=== PATIENT | female | born 1990 | race Caucasian/White ===

== ENCOUNTER 2019-01-15 17:42 | Inpatient (IN) | payer OTHER ==
[~2019-01-15 17:42] MED LIST: Dexamethasone 20 MG/5 ML VIAL ONE; Ketorolac Tromethamine 30 MG/ML VIAL ONE; Ondansetron PF 4 MG/2 ML Vial ONE; diphenhydrAMINE 50 MG/ML VIAL ONE
[2019-01-15 18:37] VITALS: BMI 38.5
[2019-01-15] MEDS ORDERED: Ondansetron PF 4 MG/2 ML Vial IVP PRN ×4 (20:36→22:37)
[2019-01-15] MEDS ORDERED: Promethazine HCl 25 MG/ML VIAL IM PRN ×4 (20:36→22:37)
[2019-01-15] MEDS ORDERED: Lactated Ringer's 1,000 ML IV SCH ×2 (20:45→21:00)
[2019-01-15] MEDS ORDERED: CEFAZOLIN 2 GM in Premix Bag 1 BAG IVPB SCH ×2 (20:45→21:00)
[2019-01-15] MEDS ORDERED: Bicitra 30 ML UDCUP PO SCH ×2 (20:45→21:00)
--- NOTE | 2019-01-15 20:49 | ULT ---
ULTRASOUND BIOPHYSICAL PROFILE: 01/15/19 HISTORY: Abnormal biophysical profile obtained in physician's office which was 4 out of 8 with amniotic fluid index of 5 reported from outside exam. COMPARISON: None available. FINDINGS: There is evidence of a single intrauterine gestation. Cardiac Doppler demonstrates heart tones with a heart rate of 135 beats per minute. The placenta is located anteriorly without evidence of placenta previa. Subjectively, there is decreased amniotic fluid with diminished amniotic fluid in dex of 2.6 cm obtained on this exam. A score of 2 was obtained for movement and amniotic fluid volume. A score of 0 was obtained fo r tone and breathing movements. IMPRESSION: 1. Decreased biophysical profile score of 4 out of 8. 2. Oligohydramnios with amniotic fluid index measuring 2.6 cm. 3. Single intrauterine gestation in cephalic presentation with heart tones documented. 4. Above findings discussed with Adelaida labor and deliver nurse on 01/15/19 at 2039 hours. POS: [facility]
[2019-01-15 20:51] LABS: Hemoglobin 13.3 g/dL (12.0-16.0); Mean Corpuscular HGB CONC 35.3 g/dL (32.0-36.0); Mean Corpuscular Hemoglobin 33.7 pg (27.0-31.0); Mean Corpuscular Volume 95.4 fL (78.0-98.0); Mean Platelet Volume 9.1 fL (7.4-10.4); Platelet Count 207 thou/uL (130-400); RBC Distribution Width 13.5 % (11.5-14.5); Red Blood Cell (RBC) Count 3.96 mill/uL (4.20-5.40); White Blood Cell (WBC) Count 8.5 thou/uL (4.8-10.8)
--- NOTE | 2019-01-15 20:59 | PDOC.LDHP ---
Labor and Delivery H&P Chief complaint: decreased movement HPI: 28 Y/O at 37 and 6/7 weeks with hx of demise due to extreme prematurity, cervial cerclage and term that followed but with 4th degree laceration of the perineum. Patient has opted for medically indicated primary to avoid repeat anal sphincter injury. Today, she presents to clinic c/o almost 24 hours of minimal movement. 11/06 BPP. Patient sent to [facility] for further evaluation and likely soon. Current gestational age (weeks): 37 Grav: 3 Para: 1 Current complications: other (cervical incompetance) Abnormal US findings: Yes (11/06 BPP today) Current medications: pre-javier vitamins Previous surgical history: none (Repair of 4th degree anal injury) Allergies/Adverse Reactions: Allergies Allergy/AdvReac Type Severity Reaction Status Date / Time acetaminophen [From Vicodin] Allergy Verified 03/22/13 18:54 codeine Allergy Verified 03/22/13 18:54 hydrocodone bitartrate Allergy Verified 03/22/13 18:54 [From Vicodin] Social history: none - Physical Exam Vital signs reviewed and normal: yes General: NAD Heart: RRR Lungs: CTAB Abdomen: NTTP Extremeties: no edema FHT: category 1 - Assessment L&D Assessment: scheduled primary section - Plan Plan: to OR for section
[2019-01-15] MEDS ORDERED: MORPHINE 5 MG/10 ML PF VIAL ONE (21:31)
[2019-01-15] MEDS ORDERED: Oxytocin 10 UNITS/ML VIAL ONE ×3 (21:31→22:32)
[2019-01-15 21:41] LABS: Syphilis Antibody Nonreactive (Nonreactive); Syphilis Antibody Index 0.03 S/CO (<1.00 Non-Reactive)
[2019-01-15] MEDS ORDERED: diphenhydrAMINE 50 MG/ML VIAL IVP PRN ×2 (22:05→22:37)
[2019-01-15] MEDS ORDERED: Ondansetron HCl/PF 4 MG/2 ML Vial IVP PRN ×2 (22:05→22:37)
[2019-01-15] MEDS ORDERED: HYDROmorphone 2 MG/ML VIAL SLOW IVP PRN ×2 (22:05→22:37)
[2019-01-15] MEDS ORDERED: L&D-Morphine 4 MG/ML VIAL SLOW IVP PRN ×2 (22:05→22:37)
[2019-01-15] MEDS ORDERED: Promethazine HCl 25 MG SUPP PR PRN ×2 (22:05→22:37)
[2019-01-15] MEDS ORDERED: Naloxone HCl 0.4 mg/ml Vial IVP PRN ×3 (22:05→22:37)
[2019-01-15] MEDS ORDERED: Meperidine HCl/PF 25 MG/ML VIAL SLOW IVP PRN ×2 (22:05→22:37)
[2019-01-15] MEDS ORDERED: Ketorolac Tromethamine 30 MG/ML VIAL IVP PRN ×2 (22:05→22:37)
[2019-01-15] MEDS ORDERED: Naloxone HCl 0.4 mg/ml Vial IV PRN ×2 (22:05→22:37)
[2019-01-15] MEDS ORDERED: Ondansetron PF 4 MG/2 ML Vial ONE (22:14)
[2019-01-15] MEDS ORDERED: Ketorolac Tromethamine 30 MG/ML VIAL IVP SCH (22:15)
[2019-01-15] MEDS ORDERED: Communication Order-Pharmacy FS SCH ×2 (22:15→22:45)
[2019-01-15] MEDS ORDERED: Ketorolac Tromethamine 30 MG/ML VIAL ONE (22:26)
[2019-01-15] MEDS ORDERED: Dexamethasone 4 mg/ml Vial ONE (22:26)
[2019-01-15] MEDS ORDERED: diphenhydrAMINE 50 MG/ML VIAL ONE (22:58)
[2019-01-15 23:01] LABS: HBSAg Index 0.31 S/CO (0-0.99); Hep B Surf Ag Non-Reactive S/CO (NonReactive)
[2019-01-16] MEDS ORDERED: Meperidine HCl/PF 25 MG/ML VIAL ONE (00:27)
[2019-01-16] MEDS ORDERED: Naloxone HCl 0.4 mg/ml Vial ONE (00:44)
[2019-01-16] MEDS: Naloxone HCl 0.4 mg/ml Vial IVP PRN ×2 (00:46→05:51)
[2019-01-16] MEDS ORDERED: Lanolin Ointment 7 GM TUBE TOP PRN (01:10)
[2019-01-16] MEDS ORDERED: Simethicone Chewable 80 MG TAB PO PRN (01:10)
[2019-01-16] MEDS ORDERED: Bisacodyl 10 MG SUPP PR PRN (01:10)
[2019-01-16] MEDS ORDERED: Ondansetron PF 4 MG/2 ML Vial IVP PRN (01:10)
[2019-01-16] MEDS ORDERED: Promethazine HCl 25 MG/ML VIAL IM PRN (01:10)
[2019-01-16] MEDS ORDERED: NS / Oxytocin 40 units/1000ml 1,000 ML IV SCH (01:10)
[2019-01-16] MEDS ORDERED: Lactated Ringer's 1,000 ML IV SCH (01:10)
[2019-01-16] MEDS ORDERED: Methylergonovine 0.2 MG/ML VIAL IM PRN (01:10)
[2019-01-16] MEDS ORDERED: Zolpidem Tartrate 5 MG TAB PO PRN (01:10)
[2019-01-16] MEDS ORDERED: Misoprostol 200 MCG TAB PR PRN (01:10)
[2019-01-16 06:03] LABS: Hemoglobin 12.5 g/dL (12.0-16.0); Mean Corpuscular HGB CONC 34.7 g/dL (32.0-36.0); Mean Corpuscular Hemoglobin 33.3 pg (27.0-31.0); Mean Corpuscular Volume 96.1 fL (78.0-98.0); Mean Platelet Volume 9.3 fL (7.4-10.4); Platelet Count 189 thou/uL (130-400); RBC Distribution Width 13.4 % (11.5-14.5); Red Blood Cell (RBC) Count 3.76 mill/uL (4.20-5.40); White Blood Cell (WBC) Count 14.7 thou/uL (4.8-10.8)
[2019-01-16] MEDS: Prenatal Vitamin 1 TAB PO SCH (08:07)
[2019-01-16] MEDS: Docusate Calcium (SURFAK) 240 MG CAP PO SCH ×2 (08:14→21:25)
[2019-01-16] MEDS: diphenhydrAMINE 25 MG CAP PO PRN ×3 (08:20→21:30)
[2019-01-16] MEDS ORDERED: Measles/Mumps/Rubella 10 MCG/0.5 ML VIAL SC ONE (09:00)
[2019-01-16] MEDS ORDERED: Adacel (T-DAP) 0.5 ML SYRINGE IM ONE (09:00)
[2019-01-16] MEDS ORDERED: Varicella virus, LIVE 0.5 ML VIAL SC ONE (09:00)
--- NOTE | 2019-01-16 17:44 | PDOC.PP ---
Post Progress Note Post Day #: 1 PO intake tolerated: yes Flatus: yes Ambulation: yes Vital Signs (12 hours) Temp Pulse Resp BP Pulse Ox 01/16/19 16:15 97.9 F 94 20 125/84 01/16/19 11:08 98.3 F 84 20 121/66 01/16/19 08:17 98.1 F 81 20 129/72 96 Weight Weight 246 lb - Physical Examination General: NAD Cardiovascular: no m/r/g, RRR Respiratory: clear to auscultation bilaterally, non-labored breathing Abdominal: + bowel sounds, lochia, no distention Extremities: negative homans (B) Skin: CS incision dry & intact, no rash Neurological: no gross focal deficits Psychiatric: A&Ox3, normal affect (Continue post op care. Doing very well today. CMP in the morning to review CR/BUN after some decreased urine output earlier today.) Result Diagrams: 01/16/19 05:32 Additional Labs: Post Labs Blood Type B POSITIVE 01/16/19 00:06 Hep Bs Antigen Non-Reactive S/CO (NonReactive) 01/15/19 20:39
[2019-01-16] MEDS: traMADol HCl 50 MG TAB PO PRN ×2 (18:36→22:56)
[2019-01-16] MEDS: Ibuprofen 800 MG TAB PO SCH (21:25)
[2019-01-16] MEDS ORDERED: Sodium Chloride 0.9% 10 ML ONE (22:59)
[2019-01-17] MEDS: Ibuprofen 800 MG TAB PO SCH ×2 (05:53→14:09)
[2019-01-17] MEDS ORDERED: Ibuprofen 800 MG TAB PO SCH (06:00)
[2019-01-17 06:12] LABS: ALT (SGPT) 27 U/L (8-55); AST (SGOT) 26 U/L (5-34); Albumin 3.1 g/dL (3.5-5.0); Alkaline Phosphatase 67 U/L (40-150); Anion Gap 11 mmol/L (10-20); BUN (Urea Nitrogen) 8 mg/dL (7.0-18.7); Calc. Creatinine Clearance 231 mL/min (70-130); Carbon Dioxide 27 mmol/L (22-29); Chloride 103 mmol/L (98-107); Estimated GFR-MDRD Greater than 90; Globulin 2.5 g/dL (2.4-3.5); Glucose 94 mg/dL (70-105); Protein, Total 5.6 g/dL (6.0-8.3); Sodium 137 mmol/L (136-145)
[2019-01-17] MEDS: Prenatal Vitamin 1 TAB PO SCH (09:05)
[2019-01-17] MEDS: Docusate Calcium (SURFAK) 240 MG CAP PO SCH (09:05)
[2019-01-17] MEDS: traMADol HCl 50 MG TAB PO PRN ×3 (09:07→17:42)
[2019-01-17 11:51] VITALS: BP 112/62; TEMP 97.9
--- NOTE | 2019-01-17 18:05 | PDOC.PP ---
Post Progress Note Post Day #: 2 PO intake tolerated: yes Flatus: yes Ambulation: yes Vital Signs (12 hours) Temp Pulse Resp BP Pulse Ox 01/17/19 11:50 97.9 F 81 20 112/62 01/17/19 08:14 98.0 F 77 20 128/75 98 01/17/19 08:00 98 Weight Weight 246 lb - Physical Examination General: NAD Cardiovascular: no m/r/g, RRR Respiratory: clear to auscultation bilaterally, non-labored breathing Abdominal: + bowel sounds, lochia, no distention Extremities: negative homans (B) Skin: CS incision dry & intact, no rash Neurological: no gross focal deficits (DC to home. NL CMP.) Psychiatric: A&Ox3, normal affect Result Diagrams: 01/16/19 05:32 01/17/19 05:24 Additional Labs: Post Labs Blood Type B POSITIVE 01/16/19 00:06 Hep Bs Antigen Non-Reactive S/CO (NonReactive) 01/15/19 20:39
== END 2019-01-17 18:30 | disposition home or self-care (01) | DRG 788 ==
LOC: L&D 17:42 → 3SW 01-16 01:48
PROVIDERS: ADMIT Obstetrics & Gynecology; ATTEND Obstetrics & Gynecology
PROC: 10D00Z1 Extraction of Products of Conception, Low, Open Approach (ICD-10-PCS; principal; 2019-01-15)
DX: O76 Abnormality in fetal heart rate and rhythm complicating labor and delivery (principal); O34.211 Maternal care for low transverse scar from previous cesarean delivery; Z3A.37 37 weeks gestation of pregnancy; Z37.0 Single live birth; Z88.5 Allergy status to narcotic agent
CPT/HCPCS: 36415; 51702; 59871; 76819; 80053; 85027; 86780; 86850; 86900; 86901; 87340; 88305; 90715; J0690; J1100; J1200; J1885; J2175; J2270; J2310; J2405; J2590; Q0163

== ENCOUNTER 2019-10-01 17:21 | Emergency (ER) | payer MEDICAID, SELFPAY ==
[2019-10-01 17:51] LABS: BHCG - Serum Negative (NEGATIVE); Pregs Control Background? CLEAR/WHITE (CLR/WHITE); Pregs Control Bar Appear? YES (CONTROL BAR)
[2019-10-01 17:56] LABS: #Basophils 0.1 thou/uL (0.0-0.2); #Eosinphils 0.1 thou/uL (0.0-0.7); #Lymphocytes 1.7 thou/uL (1.20-3.40); #Monocytes 0.5 thou/uL (0.11-0.59); #Neutrophils 5.7 thou/uL (1.40-6.50); %Basophils 0.6 % (0.0-1.0); %Eosinophils 1.3 % (0.0-10.0); %Lymphocytes 21.1 % (21.0-51.0); %Monocytes 6.7 % (0.0-10.0); %Neutrophils 70.3 % (42.0-75.0); Hemoglobin 13.8 g/dL (12.0-16.0); Mean Corpuscular HGB CONC 35.3 g/dL (32.0-36.0); Mean Corpuscular Hemoglobin 34.1 pg (27.0-31.0); Mean Corpuscular Volume 96.6 fL (78.0-98.0); Mean Platelet Volume 7.7 fL (7.4-10.4); Platelet Count 242 thou/uL (130-400); RBC Distribution Width 12.2 % (11.5-14.5); Red Blood Cell (RBC) Count 4.04 mill/uL (4.20-5.40); White Blood Cell (WBC) Count 8.1 thou/uL (4.8-10.8)
[2019-10-01 18:08] LABS: ALT (SGPT) 23 U/L (8-55); AST (SGOT) 29 U/L (5-34); Albumin 4.2 g/dL (3.5-5.0); Alkaline Phosphatase 74 U/L (40-110); Anion Gap 14 mmol/L (10-20); BUN (Urea Nitrogen) 12 mg/dL (7.0-18.7); Bilirubin, Total 1.1 mg/dL (0.2-1.2); Calc. Creatinine Clearance 0 mL/min (70-130); Calcium 9.5 mg/dL (7.8-10.44); Carbon Dioxide 24 mmol/L (22-29); Chloride 103 mmol/L (98-107); Estimated GFR-MDRD Greater than 90; Globulin 2.7 g/dL (2.4-3.5); Glucose 85 mg/dL (70-105); Lipase 28 U/L (8-78); Potassium 4.1 mmol/L (3.5-5.1); Protein, Total 6.9 g/dL (6.0-8.3); Sodium 137 mmol/L (136-145)
[2019-10-01 18:30] LABS: Bilirubin Negative (Negative); Blood, Urine Negative (Negative); Clarity Clear (Clear); Glucose, Urine (Dipstick) Normal (Negative); Leukocyte Negative Leu/uL (Negative); Nitrite Negative (Negative); Protein, Urine (Dipstick) Negative (Neg-Trace); Urobilinogen Normal mg/dL (Less than 2)
[2019-10-01] MEDS ORDERED: Lidocaine Viscous Sol 2% 15 ml UD Cup ONE (19:13)
[2019-10-01] MEDS ORDERED: Ondansetron PF 4 MG/2 ML Vial ONE (19:13)
[2019-10-01] MEDS ORDERED: Mag-Al 1200 mg/1200 mg/30 ML UDCUP ONE (19:13)
[2019-10-01] MEDS ORDERED: Ketorolac Tromethamine 30 MG/ML VIAL ONE (19:13)
[2019-10-01] MEDS ORDERED: Fentanyl 100 MCG/2 ML VIAL ONE ×2 (19:16→19:18)
--- NOTE | 2019-10-01 20:41 | ULT ---
RIGHT UPPER QUADRANT ULTRASOUND: History: Abdominal pain that started one day ago. FINDINGS: There are shadowing echogenic foci seen within the region of the gallbladder fossa with findings sugg estive of a wall echo shadow. Findings are most likely related to gallbladder filled with multiple ga llbladder calculi. Multiple gallbladder calculi were seen on a prior CT abdomen on 02-27-14. No perich olecystic fluid or gallbladder wall thickening is appreciated. However, the gallbladder wall is mostl y obscured due to shadowing echogenic foci. The common duct measures 0.2 cm in diameter which is with in normal limits. The limited visualized portions of the pancreas, visualized portions of the IVC, liver and right kidn ey demonstrate a normal sonographic appearance. The right kidney measures 10.1 cm in length. No hydro nephrosis is present. IMPRESSION: 1. Cholelithiasis with the gallbladder filled with multiple gallbladder calculi. 2. Common duct is normal in caliber. POS: OFF
== END 2019-10-01 20:28 | disposition home or self-care (01) ==
LOC: ERS 17:21
DX: K80.20 Calculus of gallbladder without cholecystitis without obstruction (principal); F17.210 Nicotine dependence, cigarettes, uncomplicated
CPT/HCPCS: 36415; 76705; 80053; 81003; 83690; 84703; 85025; 96361; 96374; 96375; J1885; J2405; J3010

== ENCOUNTER 2022-08-12 08:09 | Inpatient (IN) | payer SELFPAY ==
[2022-08-12] MEDS ORDERED: Famotidine/PF 20 mg/2ml Vial ONE (08:12)
[2022-08-12] MEDS ORDERED: diphenhydrAMINE 50 MG/ML VIAL ONE (08:12)
[2022-08-12] MEDS ORDERED: Morphine 2 MG/ML VIAL ONE (08:28)
[2022-08-12 08:41] LABS: #Eosinphils 0.1 thou/uL (0.0-0.7); #Lymphocytes 3.3 thou/uL (1.20-3.40); #Monocytes 0.5 thou/uL (0.11-0.59); #Neutrophils 13.2 thou/uL (1.40-6.50); %Basophils 0.1 % (0.0-1.0); %Eosinophils 0.6 % (0.0-10.0); %Lymphocytes 19.3 % (21.0-51.0); %Monocytes 2.6 % (0.0-10.0); %Neutrophils 77.4 % (42.0-75.0); Hemoglobin 11.6 g/dL (12.0-16.0); Mean Corpuscular HGB CONC 34.7 g/dL (32.0-36.0); Mean Corpuscular Hemoglobin 34.6 pg (27.0-31.0); Mean Corpuscular Volume 99.6 fl (78.0-98.0); Mean Platelet Volume 8.6 fL (7.4-10.4); Platelet Count 208 10x3/uL (130-400); RBC Distribution Width 12.9 % (11.5-14.5); Red Blood Cell (RBC) Count 3.35 mill/uL (4.20-5.40)
[2022-08-12 09:05] LABS: ALT (SGPT) 10 U/L (8-55); AST (SGOT) 12 U/L (5-34); Albumin 2.2 g/dL (3.5-5.0); Alkaline Phosphatase 36 U/L (40-110); Anion Gap 11 mmol/L (10-20); BUN (Urea Nitrogen) 9 mg/dL (7.0-18.7); Bilirubin, Total 0.7 mg/dL (0.2-1.2); Calc. Creatinine Clearance 0 mL/min (70-130); Carbon Dioxide 13 mmol/L (22-29); Chloride 122 mmol/L (98-107); Estimated GFR 123; Globulin 1.7 g/dL (2.4-3.5); Glucose 151 mg/dL (70-105); Protein, Total 3.9 g/dL (6.0-8.3); Sodium 144 mmol/L (136-145)
[2022-08-12 09:08] LABS: Calcium 4.8 mg/dL (7.8-10.44); Potassium 1.9 mmol/L (3.5-5.1)
[2022-08-12 09:18] LABS: HCG, Total Quant Less than 1.20 mIU/mL (See Ranges)
[2022-08-12 09:22] LABS: Thyroid Stimulating Hormone 1.5041 uIU/mL (0.35-4.94)
[2022-08-12 09:30] LABS: CKMB 1.9 ng/mL (0-6.6)
[2022-08-12] MEDS ORDERED: Calcium Chloride 1 GM/10 ML Abboject SYRINGE ONE (09:43)
[2022-08-12] MEDS ORDERED: Potassium Chloride 20 MEQ TAB ONE (09:43)
[2022-08-12] MEDS ORDERED: Potassium Chloride 20 MEQ/100 ML PREMIX BAG ONE (09:43)
[2022-08-12] MEDS ORDERED: Aspirin Chewable 81 MG TAB ONE (09:47)
[2022-08-12 09:54] LABS: INR-International Normal Ratio 1.5; PTT 30.4 sec (22.9-36.1); Prothrombin Time 18.6 sec (12.0-14.7)
[2022-08-12 10:02] LABS: Bilirubin Negative (Negative); Blood, Urine Negative (Negative); Clarity Clear (Clear); Glucose, Urine (Dipstick) Normal (Negative); Ketone, Urine Negative (Negative); Leukocyte Negative Leu/uL (Negative); Nitrite Negative (Negative); Protein, Urine (Dipstick) 20 mg/dL (Neg-Trace); Specific Gravity, Urine 1.009 (1.002-1.036); Urobilinogen Normal mg/dL (Less than 2)
[2022-08-12] MEDS ORDERED: Calcium Gluc 4.6 MEQ/10 ML (100 MG/ML) ONE (10:02)
[2022-08-12 10:16] LABS: Actual Bicarbonate (HCO3v) 23 mEq/L (22-28); Analyzer IN Cardio ER; Base Excess -6.2 mEq/L (-2.0 to +3.0); Calcium, Ionized (venous) 1.01 mmol/L (1.16-1.32); Chloride (VBG) 108 mmol/L (98-106); Hemoglobin (Hb) 16.1 g/dL (11.7-15.5); Potassium (VBG) 4.11 mmol/L (3.70-5.30); Sodium 138.3 mmol/L (133-146); pH (venous) 7.21 (7.32-7.43)
[2022-08-12] MEDS ORDERED: Cefepime 2 GM VIAL ONE (10:22)
[2022-08-12] MEDS ORDERED: Morphine 4 MG/ML VIAL ONE (10:22)
[2022-08-12] MEDS ORDERED: Vancomycin 1 GM/200 ML (FROZEN) BAG ONE (10:57)
[2022-08-12 10:59] LABS: Amphetamine Not Detected (NotDetected); Barbiturates Screen Not Detected (NotDetected); Benzodiazepine Screen Not Detected (NotDetected); Cocaine Metabolite Screen Not Detected (NotDetected); Methadone Not Detected (NotDetected); Methamphetamine Not Detected (NotDetected); Opiate Screen Detected (NotDetected); Oxycodone Screen Not Detected (NotDetected); Phencyclidine (PCP) Not Detected (NotDetected); THC/Cannabinoid Screen Not Detected (NotDetected); Tricyclic Screen Not Detected (NotDetected)
[2022-08-12 11:21] LABS: Magnesium 1.7 mg/dL (1.6-2.6); Phosphorus 3.4 mg/dL (2.3-4.7)
[2022-08-12 11:28] LABS: Troponin I 1.073 ng/mL (< 0.028)
[2022-08-12 12:48] VITALS: BMI 37.0
[2022-08-12] MEDS ORDERED: Sodium Chloride 0.9% 1,000 ML IV SCH (13:00)
[2022-08-12 13:02] LABS: Anion Gap 16 mmol/L (10-20); BUN (Urea Nitrogen) 13 mg/dL (7.0-18.7); Calc. Creatinine Clearance 159 mL/min (70-130); Calcium 8.3 mg/dL (7.8-10.44); Carbon Dioxide 18 mmol/L (22-29); Chloride 108 mmol/L (98-107); Estimated GFR 99; Glucose 148 mg/dL (70-105); Potassium 4.1 mmol/L (3.5-5.1); Sodium 138 mmol/L (136-145)
[2022-08-12] MEDS ORDERED: Piperacillin/Tazobactam 3.375 GM in Sodium Chloride 0.9% 100 ML IVPB SCH ×2 (14:00→18:00)
[2022-08-12 14:53] LABS: Lactic Acid 5.2 mmol/L (0.5-2.2)
[2022-08-12] MEDS ORDERED: Iopamidol 370 76% 50 ML VIAL FS ONE (15:22)
[2022-08-12 15:50] LABS: Troponin I 0.935 ng/mL (< 0.028)
[2022-08-12 16:13] LABS: Cardiac Risk 3.8 (Less than 4.5)
[2022-08-12] MEDS ORDERED: Communication Order-Pharmacy FS SCH (16:45)
[2022-08-12 21:50] LABS: ALT (SGPT) 58 U/L (8-55); AST (SGOT) 56 U/L (5-34); Albumin 4.2 g/dL (3.5-5.0); Alkaline Phosphatase 53 U/L (40-110); Anion Gap 15 mmol/L (10-20); BUN (Urea Nitrogen) 10 mg/dL (7.0-18.7); Bilirubin, Total 1.1 mg/dL (0.2-1.2); Calc. Creatinine Clearance 157 mL/min (70-130); Calcium 8.5 mg/dL (7.8-10.44); Carbon Dioxide 18 mmol/L (22-29); Chloride 108 mmol/L (98-107); Estimated GFR 97; Globulin 2.7 g/dL (2.4-3.5); Glucose 207 mg/dL (70-105); Potassium 4.2 mmol/L (3.5-5.1); Protein, Total 6.9 g/dL (6.0-8.3); Sodium 137 mmol/L (136-145)
[2022-08-12 23:38] LABS: Lactic Acid 3.1 mmol/L (0.5-2.2)
[2022-08-13] MEDS: Sodium Chloride 0.9% 1,000 ML IV SCH ×2 (00:02→10:05)
[2022-08-13 04:55] LABS: #Lymphocytes 2.1 thou/uL (1.20-3.40); #Monocytes 1.1 thou/uL (0.11-0.59); #Neutrophils 15.8 thou/uL (1.40-6.50); %Eosinophils 0.1 % (0.0-10.0); %Lymphocytes 10.8 % (21.0-51.0); %Monocytes 5.6 % (0.0-10.0); %Neutrophils 83.5 % (42.0-75.0); Hemoglobin 12.9 g/dL (12.0-16.0); Mean Corpuscular HGB CONC 34.8 g/dL (32.0-36.0); Mean Corpuscular Hemoglobin 33.8 pg (27.0-31.0); Mean Corpuscular Volume 97.4 fl (78.0-98.0); Platelet Count 206 10x3/uL (130-400); RBC Distribution Width 13.1 % (11.5-14.5); Red Blood Cell (RBC) Count 3.81 mill/uL (4.20-5.40)
[2022-08-13 05:16] LABS: Anion Gap 11 mmol/L (10-20); BUN (Urea Nitrogen) 9 mg/dL (7.0-18.7); Calc. Creatinine Clearance 188 mL/min (70-130); Calcium 8.6 mg/dL (7.8-10.44); Carbon Dioxide 22 mmol/L (22-29); Chloride 108 mmol/L (98-107); Estimated GFR 119; Glucose 131 mg/dL (70-105); Potassium 4.2 mmol/L (3.5-5.1); Sodium 137 mmol/L (136-145)
[2022-08-13] MEDS ORDERED: FLU VACC QS2022-23(6MOS UP)/PF 60 MCG/0.5 ML SYRINGE IM ONE (09:00)
[2022-08-13] MEDS ORDERED: Midazolam HCl 2 mg/2 ml Vial ONE (09:47)
[2022-08-13] MEDS ORDERED: FENTANYL 50 MCG/ML 1 ML VIAL ONE (09:47)
[2022-08-13] MEDS ORDERED: Lidocaine 1% (PF) 30 ML VIAL ONE (09:48)
[2022-08-13] MEDS ORDERED: Heparin 10,000 UNITS/ 10 ML VIAL ONE (09:48)
[2022-08-13] MEDS ORDERED: Nitroglycerin 100MG/250ML BOT 0 ML ONE (09:48)
[2022-08-13] MEDS ORDERED: Sodium Chloride 0.9% 200 ML IV PRN (12:43)
[2022-08-13] MEDS ORDERED: Sodium Chloride 0.9% 500 ML IV SCH (12:45)
[2022-08-13 16:32] VITALS: BP 147/85; TEMP 97.5
== END 2022-08-13 18:05 | disposition home or self-care (01) | DRG 915 ==
LOC: ERS 08:09 → ERHOLD 10:19 → 2SW 12:21
PROVIDERS: ADMIT Family Medicine; ATTEND Emergency Medicine
PROC: 3E033XZ Introduction of Vasopressor into Peripheral Vein, Percutaneous Approach (ICD-10-PCS; principal; 2022-08-12)
PROC: 4A023N7 Measurement of Cardiac Sampling and Pressure, Left Heart, Percutaneous Approach (ICD-10-PCS; 2022-08-13)
PROC: B2151ZZ Fluoroscopy of Left Heart using Low Osmolar Contrast (ICD-10-PCS; 2022-08-13)
PROC: B2111ZZ Fluoroscopy of Multiple Coronary Arteries using Low Osmolar Contrast (ICD-10-PCS; 2022-08-13)
DX: T78.2XXA Anaphylactic shock, unspecified, initial encounter (principal); I21.4 Non-ST elevation (NSTEMI) myocardial infarction; Z20.822 Contact with and (suspected) exposure to COVID-19; E87.6 Hypokalemia; E83.51 Hypocalcemia; N83.202 Unspecified ovarian cyst, left side; F17.210 Nicotine dependence, cigarettes, uncomplicated; R74.01 Elevation of levels of liver transaminase levels; Z88.5 Allergy status to narcotic agent; Z28.21 Immunization not carried out because of patient refusal; Z88.8 Allergy status to other drugs, medicaments and biological substances; Z98.51 Tubal ligation status; Z90.49 Acquired absence of other specified parts of digestive tract; Z82.49 Family history of ischemic heart disease and other diseases of the circulatory system; Z71.6 Tobacco abuse counseling
CPT/HCPCS: 36415; 71045; 71275; 74177; 80048; 80053; 80061; 80306; 81003; 82550; 82553; 82805; 83036; 83605; 83735; 84100; 84439; 84443; 84484; 84702; 85025; 85610; 85730; 87040; 87086; 93005; 93010; 93306; C1769; J0610; J0692; J1200; J1644; J1650; J2001; J2250; J2270; J2272; J2543; J3010; J3370-JW; J3480; J3490; J7050; S0028; U0003; U0005